=== PATIENT | female | born 1940 | race Caucasian/White ===

== ENCOUNTER 2016-11-13 10:18 | Outpatient (CLI) | payer MEDICARE, OTHER | END 2016-11-13 10:19 | disposition home or self-care (01) | DX: Z78.0 Asymptomatic menopausal state (principal) ==

== ENCOUNTER 2017-01-09 10:15 | Outpatient (CLI) | payer MEDICARE, OTHER | END 2017-01-09 10:16 | disposition home or self-care (01) | DX: I10 Essential (primary) hypertension (principal); E78.5 Hyperlipidemia, unspecified ==

== ENCOUNTER 2018-02-12 10:22 | Outpatient (CLI) | payer MEDICARE, OTHER ==
--- NOTE | 2018-02-12 12:01 | XRAY Report ---
CHEST TWO VIEWS: 02/12/2018 HISTORY: Short of breath. COMPARISON: 06/01/2015. FINDINGS: Progressive thoracolumbar junction levoscoliosis. Multilevel degenerative change in the spine. Heart size normal. Lungs clear. No pleural effusion or pneumothorax. Flattening of the hemidiaphragms, as before. Status post left shoulder replacement. Postsurgical changes cervical spine. IMPRESSION: NEGATIVE FOR ACUTE FINDINGS. CLEAR LUNGS. CHANGES OF COPD BEFORE. TD: 02/12/2018 11:19
== END 2018-02-12 10:23 | disposition home or self-care (01) ==
LOC: DI 10:22
PROVIDERS: ATTEND Internal Medicine
DX: J44.1 Chronic obstructive pulmonary disease with (acute) exacerbation (principal)
CPT/HCPCS: 71046

== ENCOUNTER 2018-02-19 09:52 | Outpatient (CLI) | payer MEDICARE, OTHER ==
[2018-02-19 18:21] LABS: BUN - BLOOD UREA NITROGEN 16 mg/dL (6-20); CALCIUM 9.6 mg/dL (8.5-10.3); CARBON DIOXIDE - CO2 27 mmol/L (21-32); CHLORIDE 101 mmol/L (101-111); CHOL/HDL RATIO 2.1 (<4.4); CHOLESTEROL 137 mg/dL; CREATININE 0.7 mg/dL (0.4-1.0); GFR - MDRD 81 (>89); GLUCOSE 92 mg/dL (70-100); HDL CHOLESTEROL 64 mg/dL; LDL CHOLESTEROL,CALCULATED 61 mg/dL; SODIUM 134 mmol/L (135-145); VLDL CHOLESTEROL 12 mg/dL
== END 2018-02-19 09:53 | disposition home or self-care (01) ==
LOC: LAB.F 09:52
PROVIDERS: ATTEND Internal Medicine
DX: J44.1 Chronic obstructive pulmonary disease with (acute) exacerbation (principal); I10 Essential (primary) hypertension; M48.02 Spinal stenosis, cervical region; K55.1 Chronic vascular disorders of intestine; E78.5 Hyperlipidemia, unspecified; J44.9 Chronic obstructive pulmonary disease, unspecified; R27.8 Other lack of coordination; M75.101 Unspecified rotator cuff tear or rupture of right shoulder, not specified as traumatic
CPT/HCPCS: 36415; 80048; 80061; 83721